=== PATIENT | female | born 1985 | race Caucasian/White ===

== ENCOUNTER 2018-03-26 14:02 | Emergency (ER) | payer OTHER ==
--- NOTE | 2018-03-26 14:15 | ER Report ---
History and Physical Time Seen By MD: 14:14 Hx. of Stated Complaint: sore throat started last night. Now has nausea and dry heaving without anything coming up HPI/ROS CHIEF COMPLAINT: Sore throat, nausea and vomiting HISTORY OF PRESENT ILLNESS: This is a 33-year-old female, , who presents to the emergency department for a sore throat, upper respiratory infection and nausea and vomiting. Patient states that she is 17 weeks , has not sought out care at this time. She states that yesterday she had upper respiratory type of symptoms, nose congestion, sinus pressure, this morning woke up with a sore throat, states she has thrown up twice today, the last time she threw up was about one hour prior to arrival when she felt that she was gagging and felt that she couldn't brief, that resolved when she finished throwing up. She does have some chills, no aches. She's had significant nausea with this . She does state she has not had care at this time however she does have a follow-up appointment with Dr. Cuba in the next 1-2 weeks. No rashes. No vaginal discharge, no bleeding or spotting. The baby continues to move. No chest pain or shortness of breath. No dysuria. REVIEW OF SYSTEMS: Constitutional: As above. Eyes: No discharge. ENT: No sore throat. Cardiovascular: No chest pain, no palpitations. Respiratory: No cough, no shortness of breath. Gastrointestinal: As above. Genitourinary: No hematuria. SUPERVISOR SMOKE CONTROL: As above. Musculoskeletal: No back pain. Skin: No rashes. Neurological: No headache. Allergies: Coded Allergies: acetaminophen (Verified Allergy, Intermediate, "passed out", 03/26/18) propoxyphene (Verified Allergy, Intermediate, "passed out", 03/26/18) sumatriptan (Verified Allergy, Unknown, caused high blood pressure , 03/26/18) Home Meds Active Scripts Ondansetron Hcl (ZOFRAN) 4 Mg Tablet, 4 MG PO Q4-6H PRN for prn, #20 TAB Prov:CEICLMICHAEL FORD SEWER INSPECTOR-BC 03/26/18 Past Medical/Surgical History The patient has a past medical and surgical history of , bipolar, lumpectomy from right breast. Reviewed Nurses Notes: Yes Constitutional Vital Sign - Last 24 Hours 03/26/18 03/26/18 03/26/18 03/26/18 14:08 14:09 14:20 14:32 Temp 99.1 Pulse 126 112 Resp 18 B/P (MAP) 125/67 125/67 (86) 113/68 (83) Pulse Ox 95 94 O2 Delivery Room Air 03/26/18 03/26/18 03/26/18 03/26/18 14:40 15:00 15:02 15:32 Pulse 100 94 B/P (MAP) 111/62 (78) 98/59 (72) Pulse Ox 96 93 03/26/18 15:40 B/P (MAP) 109/52 (71) Physical Exam General Appearance: The patient is alert, has no immediate need for airway protection and no signs of toxicity. Eyes: Pupils equal and round no pallor or injection. ENT, Mouth: Mucous membranes are moist. Mild erythema to the posterior oropharynx, no exudates or tonsillar hypertrophy. Respiratory: There are no retractions, lungs are clear to auscultation. Cardiovascular: Regular rate and rhythm. Gastrointestinal: Abdomen is round, soft and non tender, no masses, bowel sounds normal. SUPERVISOR SMOKE CONTROL: heart tones 150 bpm. . Neurological: Alert and oriented 4. Moving all extremities. Following up as per no focal neuro deficits. Skin: Warm and dry, no rashes. Musculoskeletal: Neck is supple non tender. Extremities are nontender, nonswollen and have full range of motion. DIFFERENTIAL DIAGNOSIS: After history and physical exam differential diagnosis was considered for influenza, viral syndrome, strep throat, urinary tract infection, preeclampsia. Medical Decision Making Data Points Result Diagram: 03/26/18 1433 03/26/18 1433 Laboratory Hematology Test 03/26/18 14:33 03/26/18 14:43 03/26/18 15:19 Red Blood Count 4.85 M/uL (4.17-5.56) Mean Corpuscular Volume 85.0 fL (80.0-96.0) Mean Corpuscular Hemoglobin 29.0 pg (26.0-33.0) Mean Corpuscular Hemoglobin Concent 34.0 g/dL (32.0-36.0) Red Cell Distribution Width 13.7 % (11.5-14.5) Mean Platelet Volume 10.4 fL (7.2-11.1) Neutrophils (%) (Auto) 87.9 % (39.4-72.5) Lymphocytes (%) (Auto) 6.7 % (17.6-49.6) Monocytes (%) (Auto) 4.8 % (4.1-12.4) Eosinophils (%) (Auto) 0.3 % (0.4-6.7) Basophils (%) (Auto) 0.3 % (0.3-1.4) Nucleated RBC Relative Count (auto) 0.2 /100WBC Neutrophils # (Auto) 16.2 K/uL (2.0-7.4) Lymphocytes # (Auto) 1.2 K/uL (1.3-3.6) Monocytes # (Auto) 0.9 K/uL (0.3-1.0) Eosinophils # (Auto) 0.0 K/uL (0.0-0.5) Basophils # (Auto) 0.1 K/uL (0.0-0.1) Nucleated RBC Absolute Count (auto) 0.03 K/uL Sodium Level 133 mmol/L (137-145) Potassium Level 3.5 mmol/L (3.5-5.0) Chloride Level 105 mmol/L (98-107) Carbon Dioxide Level 18 mmol/L (22-31) Blood Urea Nitrogen 5 mg/dl (7-18) Creatinine 0.60 mg/dl (0.52-1.04) Glomerular Filtration Rate Calc > 60.0 Random Glucose 94 mg/dl (75-110) Calcium Level 8.8 mg/dl (8.4-10.2) Total Bilirubin 0.5 mg/dl (0.2-1.3) Aspartate Amino Transf (AST/SGOT) 14 U/L (0-35) Alanine Aminotransferase (ALT/SGPT) 17 U/L (0-56) Alkaline Phosphatase 89 U/L (0-126) Total Protein 6.2 g/dl (6.3-8.2) Albumin 3.3 g/dl (3.5-5.0) Influenza Virus Type A (PCR) Negative (NEGATIVE) Influenza Virus Type B (PCR) Negative (NEGATIVE) Urine Color Yellow Urine Clarity Clear Urine pH 6.0 pH (4.8-9.5) Urine Specific Marissa 1.004 Urine Protein Negative mg/dL (NEGATIVE) Urine Glucose (UA) Negative mg/dL (NEGATIVE) Urine Ketones Negative mg/dL (NEGATIVE) Urine Blood Negative (NEGATIVE) Urine Nitrite Negative (NEGATIVE) Urine Bilirubin Negative (NEGATIVE) Urine Urobilinogen Negative mg/dL (0.2-1.9) Urine Leukocyte Esterase Negative (NEGATIVE) Urine RBC <1 /HPF (0-2/HPF) Urine WBC 1 /HPF (0-5/HPF) Urine Squamous Epithelial Cells Few /LPF (</=FEW) Urine Bacteria Few /HPF (NONE-FEW) Urine Hyaline Casts Few /LPF (NONE-FEW) Urine Mucus None /HPF (NONE-FEW) Chemistry Test 03/26/18 14:33 03/26/18 14:43 03/26/18 15:19 White Blood Count 18.4 k/uL (4.5-11.0) Red Blood Count 4.85 M/uL (4.17-5.56) Hemoglobin 14.0 g/dL (12.0-16.0) Hematocrit 41.3 % (34.0-47.0) Mean Corpuscular Volume 85.0 fL (80.0-96.0) Mean Corpuscular Hemoglobin 29.0 pg (26.0-33.0) Mean Corpuscular Hemoglobin Concent 34.0 g/dL (32.0-36.0) Red Cell Distribution Width 13.7 % (11.5-14.5) Platelet Count 152 K/uL (150-450) Mean Platelet Volume 10.4 fL (7.2-11.1) Neutrophils (%) (Auto) 87.9 % (39.4-72.5) Lymphocytes (%) (Auto) 6.7 % (17.6-49.6) Monocytes (%) (Auto) 4.8 % (4.1-12.4) Eosinophils (%) (Auto) 0.3 % (0.4-6.7) Basophils (%) (Auto) 0.3 % (0.3-1.4) Nucleated RBC Relative Count (auto) 0.2 /100WBC Neutrophils # (Auto) 16.2 K/uL (2.0-7.4) Lymphocytes # (Auto) 1.2 K/uL (1.3-3.6) Monocytes # (Auto) 0.9 K/uL (0.3-1.0) Eosinophils # (Auto) 0.0 K/uL (0.0-0.5) Basophils # (Auto) 0.1 K/uL (0.0-0.1) Nucleated RBC Absolute Count (auto) 0.03 K/uL Glomerular Filtration Rate Calc > 60.0 Calcium Level 8.8 mg/dl (8.4-10.2) Total Bilirubin 0.5 mg/dl (0.2-1.3) Aspartate Amino Transf (AST/SGOT) 14 U/L (0-35) Alanine Aminotransferase (ALT/SGPT) 17 U/L (0-56) Alkaline Phosphatase 89 U/L (0-126) Total Protein 6.2 g/dl (6.3-8.2) Albumin 3.3 g/dl (3.5-5.0) Influenza Virus Type A (PCR) Negative (NEGATIVE) Influenza Virus Type B (PCR) Negative (NEGATIVE) Urine Color Yellow Urine Clarity Clear Urine pH 6.0 pH (4.8-9.5) Urine Specific Marissa 1.004 Urine Protein Negative mg/dL (NEGATIVE) Urine Glucose (UA) Negative mg/dL (NEGATIVE) Urine Ketones Negative mg/dL (NEGATIVE) Urine Blood Negative (NEGATIVE) Urine Nitrite Negative (NEGATIVE) Urine Bilirubin Negative (NEGATIVE) Urine Urobilinogen Negative mg/dL (0.2-1.9) Urine Leukocyte Esterase Negative (NEGATIVE) Urine RBC <1 /HPF (0-2/HPF) Urine WBC 1 /HPF (0-5/HPF) Urine Squamous Epithelial Cells Few /LPF (</=FEW) Urine Bacteria Few /HPF (NONE-FEW) Urine Hyaline Casts Few /LPF (NONE-FEW) Urine Mucus None /HPF (NONE-FEW) Urinalysis Test 03/26/18 15:19 Urine Color Yellow Urine Clarity Clear Urine pH 6.0 pH (4.8-9.5) Urine Specific Marissa 1.004 Urine Protein Negative mg/dL (NEGATIVE) Urine Glucose (UA) Negative mg/dL (NEGATIVE) Urine Ketones Negative mg/dL (NEGATIVE) Urine Blood Negative (NEGATIVE) Urine Nitrite Negative (NEGATIVE) Urine Bilirubin Negative (NEGATIVE) Urine Urobilinogen Negative mg/dL (0.2-1.9) Urine Leukocyte Esterase Negative (NEGATIVE) Urine RBC <1 /HPF (0-2/HPF) Urine WBC 1 /HPF (0-5/HPF) Urine Squamous Epithelial Cells Few /LPF (</=FEW) Urine Bacteria Few /HPF (NONE-FEW) Urine Hyaline Casts Few /LPF (NONE-FEW) Urine Mucus None /HPF (NONE-FEW) ED Course/Re-evaluation Clinical Indication for ER IV: Hydration, IV Access ED Course The patient was admitted to room. A history and physical were obtained. Differential diagnoses were considered. A 1 L normal saline bolus was given. A CBC, CMP were obtained. A UA was collected. 4 mg IV Zofran were given. CBC showing white blood cell count 18.4, with a left shift, sodium 133, CO2 18, negative urine, negative influenza. With the was okay on , the rapid onset of nausea and vomiting as well as the current and the patient continues to smoke I do not feel this is a bacterial infection that requires antibiotics. Patient states feeling significant better after the liter fluid and Zofran. She will establish with her SUPERVISOR SMOKE CONTROL on Wednesday, she has yet to establish care. I also recommended that she stop smoking during the . I do feel this is a viral illness and will likely pass. I did recommend returning to the ER for any other concerns or worsening symptoms. Patient was in agreement with this plan of care and discharged home. The patient was given a prescription for Zofran. Decision to Disposition Date: Mar 26, 2018 Decision to Disposition Time: 16:19 Depart Departure Latest Vital Signs Vital Signs Date Time Temp Pulse Resp B/P (MAP) Pulse Ox O2 Delivery O2 Flow Rate FiO2 03/26/18 15:40 109/52 (71) 03/26/18 15:32 94 93 03/26/18 14:08 99.1 18 Room Air Impression: Primary Impression: Viral syndrome Additional Impression: Condition: Improved Disposition: HOME OR SELF-CARE Referrals: CHRISTINE CUBA MD New Scripts Ondansetron Hcl (ZOFRAN) 4 Mg Tablet 4 MG PO Q4-6H PRN for prn, #20 TAB Prov: MICHAEL HUGHES SEWER INSPECTOR-BC 03/26/18 Patient Instructions: First Trimester (ED), Vitamins (By [facility]), Viral Syndrome (ED) Additional Instructions: Be sure to follow up with Dr. Cuba within 1 week for reevaluation. Get plenty of rest. Drink plenty of water. Take Zofran as needed for Nausea or Vomiting. Please consider smoking cessation during . Please begin your care as soon as possible. Please start vitamins today. Return to the ED for any other concerns or worsening symptoms. Problem Qualifiers Additional Impression: Weeks of gestation: 14 weeks Qualified Codes: Z3A.14 - 14 weeks gestation of MICHAEL HUGHES-TALHA Mar 26, 2018 14:15
[2018-03-26] MEDS ORDERED: NS(*) 0.9% 1000 ML BAG 1,000 ML IV ONE (14:29)
[2018-03-26] MEDS ORDERED: ONDANSETRON 4 MG/2 ML VIAL IVP ONE (14:30)
[2018-03-26 14:45] LABS: PLATELET COUNT, AUTOMATED 152 K/uL (150-450)
[2018-03-26] MEDS ORDERED: ACETAMINOPHEN 325 MG TAB PO ONE (14:55)
[2018-03-26 15:40] VITALS: BP 109/52
[2018-03-26] MEDS ORDERED: ONDA4TAB97 PO (15:44)
== END 2018-03-26 16:23 | disposition home or self-care (01) ==
LOC: ER 14:11
DX: O98.511 Other viral diseases complicating pregnancy, first trimester (principal); B34.9 Viral infection, unspecified; Z3A.14 14 weeks gestation of pregnancy; F17.210 Nicotine dependence, cigarettes, uncomplicated
CPT/HCPCS: 81001; 85025; 87502; 96361; 96374; 99283; J2405; J7030; 82040; 82247; 82310; 82374; 82435; 82565; 82947; 84075; 84132; 84155; 84295; 84450; 84460; 84520

== ENCOUNTER 2018-04-01 17:48 | Emergency (ER) | payer OTHER ==
[~2018-04-01 17:48] MED LIST: ONDA4TAB97 PO
--- NOTE | 2018-04-01 18:03 | ER Report ---
History and Physical Time Seen By MD: 18:02 HPI/ROS CHIEF COMPLAINT: Left ear pain HISTORY OF PRESENT ILLNESS: 33-year-old female presents with left ear pain. She was seen here 6 days ago in the emergency department. She was 17 weeks at that time. She now has severe left ear pain. She was diagnosed with upper respiratory infection. It was felt to be viral. REVIEW OF SYSTEMS: Respiratory: No cough, no dyspnea. Cardiovascular: No chest pain, no palpitations. Gastrointestinal: No vomiting, no abdominal pain. Musculoskeletal: No back pain. Allergies: Coded Allergies: acetaminophen (Verified Allergy, Intermediate, "passed out", 04/01/18) propoxyphene (Verified Allergy, Intermediate, "passed out", 04/01/18) sumatriptan (Verified Allergy, Unknown, caused high blood pressure , 04/01) Home Meds Active Scripts Oxycodone Hcl/Acetaminophen (PERCOCET 5-325 MG TABLET) 1 Each Tablet, 1 EACH PO Q4-6H PRN for PAIN, #10 Prov:BRIT MEJIA DO 04/01/18 Neomycin/Polymyxin B Sulf/Hc (Cortisporin [DSC] EAR SOLN) 10 Ml Solution, 10 DROP OT TID for ear infection, #10 BOT Prov:BRIT MEJIA DO 04/01/18 Cefuroxime Axetil (CEFUROXIME) 500 Mg Tablet, 500 MG PO BID for infection, #14 TAB Prov:BRIT MEJIA DO 04/01/18 Ondansetron Hcl (ZOFRAN) 4 Mg Tablet, 4 MG PO Q4-6H PRN for prn, #20 TAB Prov:MICHAEL HUGHES BRAILLE DUPLICATING MACHINE OPERATOR- 03/26/18 Reviewed Nurses Notes: Yes Old Medical Records Reviewed: Yes Constitutional Vital Sign - Last 24 Hours 04/01/18 04/01/18 04/01/18 04/01/18 17:54 18:00 18:05 18:18 Temp 98.8 Pulse 102 96 Resp 18 B/P (MAP) 103/77 (86) 110/60 (77) 110/60 Pulse Ox 96 96 O2 Delivery Room Air Physical Exam General Appearance: The patient is alert, has no immediate need for airway protection and no current signs of toxicity. Vital signs stable, afebrile, pulse ox normal HEENT: Pupils equal and round no injection. TMs, the right appears normal. The left grossly erythematous and bulging. Ear canals also swollen. Respiratory: Chest is non tender, lungs are clear to auscultation. Cardiac: regular rate and rhythm Gastrointestinal: Abdomen is soft and non tender, no masses, bowel sounds normal. Musculoskeletal: Neck: Neck is supple and non tender. Extremities have full range of motion and are non tender. Skin: No rashes or lesions. DIFFERENTIAL DIAGNOSIS: After history and physical exam differential diagnosis was considered for otitis media otitis externa, sinusitis, pharyngitis, bronchitis, pneumonia Medical Decision Making ED Course/Re-evaluation ED Course Patient was admitted to an examination room. H&P was done. The differential diagnoses was considered. On conical examination. Patient has gross otitis media of the left tympanic membrane. She'll be covered with Ceftin. She'll be given oxycodone for pain relief. She'll be given Cortisporin eardrops. Patient advised to take Mucinex. Patient advised to follow-up with ARTIFICIAL SNOW MAKING MACHINE OPERATOR if unimproved in a few days. Decision to Disposition Date: Apr 01, 2018 Decision to Disposition Time: 18:11 Depart Departure Latest Vital Signs Vital Signs Date Time Temp Pulse Resp B/P (MAP) Pulse Ox O2 Delivery O2 Flow Rate FiO2 04/01/18 18:18 96 96 04/01/18 18:05 98.8 18 110/60 Room Air Impression: Primary Impression: Left otitis media Additional Impressions: Upper respiratory infection 18 weeks gestation of Condition: Improved Disposition: HOME OR SELF-CARE New Scripts Oxycodone Hcl/Acetaminophen (PERCOCET 5-325 MG TABLET) 1 Each Tablet 1 EACH PO Q4-6H PRN for PAIN, #10 Prov: BRIT MEJIA DO 04/01/18 Neomycin/Polymyxin B Sulf/Hc (Cortisporin [DSC] EAR SOLN) 10 Ml Solution 10 DROP OT TID for ear infection, #10 BOT Prov: BRIT MEJIA DO 04/01/18 Cefuroxime Axetil (CEFUROXIME) 500 Mg Tablet 500 MG PO BID for infection, #14 TAB Prov: BRIT MEJIA DO 04/01/18 Patient Instructions: Otitis Media (ED) Additional Instructions: Take Mucinex Follow-up with primary care if unimproved in 3-5 days Follow-up with Dr. Cuba as planned on Wednesday Problem Qualifiers Primary Impression: Left otitis media Otitis media type: suppurative Chronicity: acute Recurrence: not specified as recurrent Spontaneous tympanic membrane rupture: without spontaneous rupture Qualified Codes: H66.002 - Acute suppurative otitis media without spontaneous rupture of ear drum, left ear Additional Impressions: Upper respiratory infection URI type: unspecified URI Qualified Codes: J06.9 - Acute upper respiratory infection, unspecified BRIT MEJIA DO Apr 01, 2018 18:03
[2018-04-01 18:05] VITALS: BP 110/60
[2018-04-01] MEDS ORDERED: CORED OT (18:14)
[2018-04-01] MEDS ORDERED: CEFU500T10 PO (18:14)
[2018-04-01] MEDS ORDERED: OXYC-865 PO (18:14)
== END 2018-04-01 18:24 | disposition home or self-care (01) ==
LOC: ER 18:03
DX: O26.892 Other specified pregnancy related conditions, second trimester (principal); Z3A.18 18 weeks gestation of pregnancy; H66.002 Acute suppurative otitis media without spontaneous rupture of ear drum, left ear; J06.9 Acute upper respiratory infection, unspecified
CPT/HCPCS: 99283

== ENCOUNTER 2018-05-06 17:24 | Outpatient (CLI) | payer OTHER ==
[~2018-05-06] VITALS: Ht 162.6 cm; Wt 96.2 kg
[~2018-05-06 17:24] MED LIST changes: +CEFU500T10 PO; +CORED OT; +OXYC-865 PO
[2018-05-06 18:20] VITALS: BP 127/71
[2018-05-06] MEDS ORDERED: IBUPROFEN 800 MG TAB PO ONE (18:20)
[2018-05-06 18:25] VITALS: Ht 162.6 cm; Wt 96.2 kg
[2018-05-06] MEDS ORDERED: APAP/HYDROCODONE 325/5 TAB PO ONE (19:15)
== END 2018-05-06 19:35 | disposition home or self-care (01) ==
LOC: UNDOADMOB 17:24 → OB 17:24 → L&D 17:24 → INTOOBSV 17:24 → OB 17:24 → UNDODISOB 19:35 → L&D 19:35 → EDSTATUS 05-30 16:22
PROVIDERS: ATTEND Student in an Organized Health Care Education/Training Program
DX: O26.892 Other specified pregnancy related conditions, second trimester (principal); Z3A.23 23 weeks gestation of pregnancy
CPT/HCPCS: 36415; 82040; 82247; 82310; 82374; 82435; 82565; 82947; 84075; 84132; 84155; 84295; 84450; 84460; 84520; 99213; G0378; G0379

== ENCOUNTER 2018-07-11 10:36 | Outpatient (CLI) | payer OTHER ==
[~2018-07-11] VITALS: Ht 162.6 cm; Wt 97.5 kg
[2018-07-11 10:49] VITALS: BP 127/58; Ht 162.6 cm; Wt 97.5 kg
[2018-07-11] MEDS ORDERED: ONDANSETRON 4 MG ODT TABDP SL ONE (11:40)
[2018-07-11] MEDS ORDERED: PREN-148 (13:22)
[2018-07-11] MEDS ORDERED: ALBU8.5H IH (13:22)
== END 2018-07-11 13:29 | disposition home or self-care (01) ==
LOC: L&D 10:36 → OB 10:36 → UNDOADMIN 10:36 → L&D 13:29 → UNDODISIN 13:29 → EDSTATUS 07-13 12:07
PROVIDERS: ATTEND Student in an Organized Health Care Education/Training Program
DX: O26.893 Other specified pregnancy related conditions, third trimester (principal); R11.0 Nausea; R42 Dizziness and giddiness; Z3A.32 32 weeks gestation of pregnancy
CPT/HCPCS: 59025; 81001; 87077; 87088; 87186; 99213; S0119

== ENCOUNTER 2018-09-08 17:03 | Emergency (ER) | payer OTHER ==
[2018-07-11 10:49] VITALS: Wt 92.1 kg
[~2018-09-08 17:03] MED LIST changes: +ALBU8.5H IH; +PREN-148
--- NOTE | 2018-09-08 17:09 | ER Report ---
History and Physical Time Seen By MD: 17:06 HPI/ROS CHIEF COMPLAINT: Chest pain HISTORY OF PRESENT ILLNESS: This is a 33-year-old female who presents to emergency department for chest pain. Patient is status post vaginal delivery 10 days. No complications during the delivery. She did smoke before during and currently smoking as well. She states that today around 2:00 she had a sudden onset of midsternal anterior chest pain, it did radiate into the left arm. She sat down, the pain subsided, she got up went home and the pain returned while she was just sitting at home, midsternal into the jaw and left arm, the pain is now subsiding. She denies any recent fevers or chills. No nausea or vomiting. No diaphoresis. Heart rate was 95 upon arrival. She is not currently short of breath however during these episodes she states she does have some shortness of breath. REVIEW OF SYSTEMS: Constitutional: No fever, no chills. Eyes: No discharge. ENT: No sore throat. Cardiovascular: As above. Respiratory: As above. Gastrointestinal: No abdominal pain, no vomiting. Genitourinary: No hematuria. Musculoskeletal: No back pain. Skin: No rashes. Neurological: No headache. Allergies: Coded Allergies: acetaminophen (Verified Allergy, Intermediate, "passed out", 09/08/18) propoxyphene (Verified Allergy, Intermediate, "passed out", 09/08/18) sumatriptan (Verified Allergy, Unknown, caused high blood pressure , 09/08/18) Home Meds Discontinued Reported Medications Albuterol Sulfate 90 Mcg/Act (PROAIR HFA 90 MCG/ACT) 8.5 Gm Hfa.aer.ad, 1-2 PUFF IH 3-4XD PRN for SHORTNESS OF BREATH, INHALER 07/11/18 Vit W-Ca,Fe,FA(<1 mg) ( Formula) 1 Each Tablet 07/11/18 Discontinued Scripts Ondansetron Hcl (ZOFRAN) 4 Mg Tablet, 4 MG PO Q4-6H PRN for prn, #20 TAB Prov:MICHAEL HUGHES MUNICIPAL SERVICES MANAGER-BC 03/26/18 Past Medical/Surgical History Patient has a past medical and surgical history of , bipolar, manic depressive, smokes cigarettes, right breast lumpectomy. Reviewed Nurses Notes: Yes Hx Smoking: Yes Smoking Status: Current: Every Day Smoker Exposure to Second Hand Smoke?: Yes Constitutional Vital Sign - Last 24 Hours 09/08/18 09/08/18 09/08/18 09/08/18 17:07 17:10 17:30 17:40 Temp 98.3 Pulse 92 90 87 Resp 20 12 9 B/P (MAP) 122/68 116/78 (91) Pulse Ox 94 96 90 09/08/18 18:00 B/P (MAP) 118/77 (91) Physical Exam General Appearance: The patient is alert, has no immediate need for airway protection and no signs of toxicity. Eyes: Pupils equal and round no pallor or injection. ENT, Mouth: Mucous membranes are moist. Respiratory: There are no retractions, lungs are clear to auscultation. Cardiovascular: Regular rate and rhythm. No murmurs, clicks or rubs. Gastrointestinal: Abdomen is soft and non tender, no masses, bowel sounds normal. Neurological: Alert and oriented 4. Moving all extremities. Following all commands. No focal neuro deficits. Skin: Warm and dry, no rashes. Musculoskeletal: Neck is supple non tender. Extremities are nontender, nonswollen and have full range of motion. DIFFERENTIAL DIAGNOSIS: After history and physical exam differential diagnosis was considered for chest pain including but not limited to myocardial ischemia, pericarditis pulmonary embolus, chest wall pain, pleural inflammation and pulmonary infectious causes. Medical Decision Making Data Points Result Diagram: 09/08/18 1712 09/08/18 1712 Laboratory Hematology Test 09/08/18 17:12 Red Blood Count 5.48 M/uL (4.17-5.56) Mean Corpuscular Volume 81.7 fL (80.0-96.0) Mean Corpuscular Hemoglobin 27.2 pg (26.0-33.0) Mean Corpuscular Hemoglobin Concent 33.3 g/dL (32.0-36.0) Red Cell Distribution Width 16.1 % (11.5-14.5) Mean Platelet Volume 8.6 fL (7.2-11.1) Neutrophils (%) (Auto) 66.2 % (39.4-72.5) Lymphocytes (%) (Auto) 26.2 % (17.6-49.6) Monocytes (%) (Auto) 5.9 % (4.1-12.4) Eosinophils (%) (Auto) 1.2 % (0.4-6.7) Basophils (%) (Auto) 0.5 % (0.3-1.4) Nucleated RBC Relative Count (auto) 0.0 /100WBC Neutrophils # (Auto) 7.2 K/uL (2.0-7.4) Lymphocytes # (Auto) 2.9 K/uL (1.3-3.6) Monocytes # (Auto) 0.6 K/uL (0.3-1.0) Eosinophils # (Auto) 0.1 K/uL (0.0-0.5) Basophils # (Auto) 0.1 K/uL (0.0-0.1) Nucleated RBC Absolute Count (auto) 0.00 K/uL D-Dimer Quantitative (PE/DVT) 0.76 ug/ml (0-0.50) Sodium Level 138 mmol/L (137-145) Potassium Level 4.0 mmol/L (3.5-5.0) Chloride Level 106 mmol/L (98-107) Carbon Dioxide Level 21 mmol/L (22-31) Blood Urea Nitrogen 17 mg/dl (7-18) Creatinine 1.10 mg/dl (0.52-1.04) Glomerular Filtration Rate Calc 57.6 Random Glucose 105 mg/dl (75-110) Calcium Level 9.3 mg/dl (8.4-10.2) Total Bilirubin 0.4 mg/dl (0.2-1.3) Aspartate Amino Transf (AST/SGOT) 22 U/L (0-35) Alanine Aminotransferase (ALT/SGPT) 35 U/L (0-56) Alkaline Phosphatase 133 U/L (0-126) Troponin I < 0.012 ng/ml Total Protein 7.0 g/dl (6.3-8.2) Albumin 3.8 g/dl (3.5-5.0) Chemistry Test 09/08/18 17:12 White Blood Count 10.9 k/uL (4.5-11.0) Red Blood Count 5.48 M/uL (4.17-5.56) Hemoglobin 14.9 g/dL (12.0-16.0) Hematocrit 44.8 % (34.0-47.0) Mean Corpuscular Volume 81.7 fL (80.0-96.0) Mean Corpuscular Hemoglobin 27.2 pg (26.0-33.0) Mean Corpuscular Hemoglobin Concent 33.3 g/dL (32.0-36.0) Red Cell Distribution Width 16.1 % (11.5-14.5) Platelet Count 321 K/uL (150-450) Mean Platelet Volume 8.6 fL (7.2-11.1) Neutrophils (%) (Auto) 66.2 % (39.4-72.5) Lymphocytes (%) (Auto) 26.2 % (17.6-49.6) Monocytes (%) (Auto) 5.9 % (4.1-12.4) Eosinophils (%) (Auto) 1.2 % (0.4-6.7) Basophils (%) (Auto) 0.5 % (0.3-1.4) Nucleated RBC Relative Count (auto) 0.0 /100WBC Neutrophils # (Auto) 7.2 K/uL (2.0-7.4) Lymphocytes # (Auto) 2.9 K/uL (1.3-3.6) Monocytes # (Auto) 0.6 K/uL (0.3-1.0) Eosinophils # (Auto) 0.1 K/uL (0.0-0.5) Basophils # (Auto) 0.1 K/uL (0.0-0.1) Nucleated RBC Absolute Count (auto) 0.00 K/uL D-Dimer Quantitative (PE/DVT) 0.76 ug/ml (0-0.50) Glomerular Filtration Rate Calc 57.6 Calcium Level 9.3 mg/dl (8.4-10.2) Total Bilirubin 0.4 mg/dl (0.2-1.3) Aspartate Amino Transf (AST/SGOT) 22 U/L (0-35) Alanine Aminotransferase (ALT/SGPT) 35 U/L (0-56) Alkaline Phosphatase 133 U/L (0-126) Troponin I < 0.012 ng/ml Total Protein 7.0 g/dl (6.3-8.2) Albumin 3.8 g/dl (3.5-5.0) Coagulation Test 09/08/18 17:12 D-Dimer Quantitative (PE/DVT) 0.76 ug/ml EKG/Imaging EKG Interpretation 12 lead EKG: Time of EKG 1711. Rhythm: Normal sinus rhythm, ventricular rate 91 bpm. [place]: normal QRS: normal ST segments: No ST depression or elevation identified. Imaging PATIENT NAME: Rolanda Ackerman : 1985 MR: [id number] V: [id number] EXAM DATE: ORDERING PHYSICIAN: MICHAEL HUGHES TECHNOLOGIST: Location: [facility] Patient: Rolanda Ackerman : 1985 Visit/Account:[id number] Date of Sevice: 09/08/2018 CT CTA CHEST W & W/O CON HISTORY: eval for PE, chest pain, elevated dimer TECHNIQUE: CTA chest with intravenous contrast attention to pulmonary arteries. Sagittal, coronal and slab 3D MIP coronal reconstructed images were also created for further evaluation and interpretation. One of the following dose optimization techniques was utilized in the performance of this exam: Automated exposure control; adjustment of the mA and/or kV according to the patient's size; or use of an iterative reconstruction technique. Specific details can be referenced in the facility's radiology CT exam operational policy. CONTRAST: Isovue-370 75 mL COMPARISON: Chest 09/08/2018 FINDINGS: Lungs:: Central airways are patent. Negative pulmonary parenchymal abnormalities. Heart, krissy and aorta:: Heart is not enlarged. Great vessels follow normal course and caliber. Pulmonary arteries:Opacification of pulmonary arteries is excellent. There are no filling defects identified within the pulmonary arteries. Pleura:: Negative. Chest wall: Negative axillary adenopathy. Visualized upper abdomen: Negative. Bones: Negative. IMPRESSION: No centrally obstructive pulmonary emboli Report Dictated By: Paramjit Hamilton MD at 09/08/2018 6:26 PM Report E-Signed By: Paramjit Hamilton MD at 09/08/2018 6:29 PM WSN:[id number] ED Course/Re-evaluation Clinical Indication for ER IV: Hydration, IV Access ED Course The patient was admitted to room. A history of physical were obtained. Differential diagnoses were considered. An IV was started. A CBC, CMP, troponin and d-dimer were obtained. Laboratory studies unremarkable, negative troponin, elevated d-dimer. I did review the elevated d-dimer with the patient and her , we did elect to proceed with a CT of the chest to evaluate for pulmonary embolus, the CTA was negative. Patient was given a GI cocktail with some relief, she was also given 40 mg IV Protonix. I do believe that she has a pro reflux, we discussed this, I did tell her that I wanted her to follow up with her primary care provider or established with a new primary care provider within one week for reevaluation. Patient expressed understanding was discharged home. 09/08/2018 5:29:53 pm I did explain to patient that she is at higher risk for a pulmonary embolus as she recently delivered and also smokes. If a CT is ne cessary, she is agreeable to a CT scan. I have recently talked with radiology about a CT scan with contrast, the radiologist did state that the amount of contrast and would reach the is negligible however the patient does have some reserves already stored and the baby is also able to take formula. 09/08/2018 6:31:56 pm patient states she is having recurrent pain now, I did apply some pressure to the anterior chest, she states that this did help with some of the discomfort. Will try a GI cocktail. 09/08/2018 6:59:26 pm The patient did have some improvement of symptoms, will try Protonix, her symptoms are less likely related to ACS and more likely related to acid reflux. 09/08/2018 7:12:59 pm patient's states having significant improvement at the time of discharge. Decision to Disposition Date: Sep 08, 2018 Decision to Disposition Time: 19:08 Depart Departure Latest Vital Signs Vital Signs Date Time Temp Pulse Resp B/P (MAP) Pulse Ox O2 Delivery O2 Flow Rate FiO2 09/08/18 18:00 118/77 (91) 09/08/18 17:40 87 9 90 09/08/18 17:07 98.3 Impression: Primary Impression: Chest pain of uncertain etiology Condition: Improved Disposition: HOME OR SELF-CARE Referrals: CHRISTINE ALSTON MD (PCP) 1 Week Patient Instructions: Chest Pain (ED), Gastroesophageal Reflux Disease (ED) Additional Instructions: No concerning findings on the laboratory studies, EKG looked good, chest x-ray was not concerning, this CT of your chest did not show a pulmonary embolus. Your symptoms could be related to acid reflux, I would like to follow-up with Dr. Alston or establish with a new primary care provider for reevaluation within 1 week. Heat a bland diet for the next 24-48 hours. Avoid spicy, hot and greasy foods. Eat a well balanced meal. Drink plenty of water. Get plenty of rest. Return to the ED for any other concerns or worsening symptoms. You can also try OTC protonix, famotidine or Zantac once a day for the next week. MICHAEL UHGHES MUNICIPAL SERVICES MANAGER-BC Sep 08, 2018 17:09
[2018-09-08] MEDS ORDERED: NS(*) 0.9% 1000 ML BAG 1,000 ML IV ONE (17:27)
[2018-09-08 17:35] LABS: PLATELET COUNT, AUTOMATED 321 K/uL (150-450)
[2018-09-08] MEDS ORDERED: IOPAMIDOL 76% 100 ML INFUS BTL 100 ML ONE (18:00)
[2018-09-08] MEDS ORDERED: NS(*) 0.9% 50 ML BAG 50 ML ONE (18:00)
--- NOTE | 2018-09-08 18:16 | RADIOLOGY IMAGING REPORT ---
FACILITY: [facility] - [place] PATIENT NAME: Rolanda Ackerman : 1985 MR: [id number] V: [id number] EXAM DATE: ORDERING PHYSICIAN: MICHAEL HUGHES TECHNOLOGIST: Location: [facility] Patient: Rolanda Ackerman : 1985 Visit/Account:[id number] Date of Sevice: 09/08/2018 HISTORY: Chest pain and left arm pain DATE: 09/08/2018 5:27 PM TECHNIQUE: CHEST PA LAT COMPARISON: none FINDINGS: The cardiomediastinal silhouette is of normal size and contour. No pleural effusion. No pne umothorax. No consolidation. The lungs are adequately expanded. IMPRESSION: No acute findings Report Dictated By: Ajay Johnson MD at 09/08/2018 6:09 PM Report E-Signed By: Ajay Johnson MD at 09/08/2018 6:10 PM WSN:[id number]
--- NOTE | 2018-09-08 18:32 | EKG ---
[place] [facility] [place] NAME[place] HEATHER PLASCENCIA : [id number] MR: [id number] V: [id number] EXAM DATE: ORDERING PHYSICIAN: MICHAEL HUGHES TECHNOLOGIST: JUSTIN Test Reason : CP Blood Pressure : / mmHG Vent. Rate : 091 BPM Atrial Rate : 091 BPM P-R Int : 134 ms QRS Dur : 088 ms QT Int : 366 ms P-R-T Axes : 019 038 037 degrees QTc Int : 450 ms Sinus rhythm Nonspecific ST findings inferolateral leads No previous ECGs available Confirmed by MARIE NG ([id number] on 09/08/2018 8:11:32 PM Referred By: Confirmed By:MARIE NG
[2018-09-08] MEDS ORDERED: MAG HYD/AL HYD/SIMETH 30ML UDC PO ONE (18:35)
[2018-09-08] MEDS ORDERED: LIDOCAINE 2% VISC SLN 15ML UDC PO ONE (18:35)
--- NOTE | 2018-09-08 18:36 | RADIOLOGY IMAGING REPORT ---
FACILITY: [facility] - [place] PATIENT NAME: Rolanda Ackerman : 1985 MR: [id number] V: [id number] EXAM DATE: ORDERING PHYSICIAN: MICHAEL HUGHES TECHNOLOGIST: Location: [facility] Patient: Rolanda Ackerman : 1985 Visit/Account:[id number] Date of Sevice: 09/08/2018 CT CTA CHEST W & W/O CON HISTORY: eval for PE, chest pain, elevated dimer TECHNIQUE: CTA chest with intravenous contrast attention to pulmonary arteries. Sagittal, coronal a nd slab 3D MIP coronal reconstructed images were also created for further evaluation and interpretati on. One of the following dose optimization techniques was utilized in the performance of this exam: Autom ated exposure control; adjustment of the mA and/or kV according to the patient's size; or use of an i terative reconstruction technique. Specific details can be referenced in the facility's radiology CT exam operational policy. CONTRAST: Isovue-370 75 mL COMPARISON: Chest 09/08/2018 FINDINGS: Lungs:: Central airways are patent. Negative pulmonary parenchymal abnormalities. Heart, krissy and aorta:: Heart is not enlarged. Great vessels follow normal course and caliber. Pulmonary arteries:Opacification of pulmonary arteries is excellent. There are no filling defects bessie ntified within the pulmonary arteries. Pleura:: Negative. Chest wall: Negative axillary adenopathy. Visualized upper abdomen: Negative. Bones: Negative. IMPRESSION: No centrally obstructive pulmonary emboli Report Dictated By: Paramjit Hamilton MD at 09/08/2018 6:26 PM Report E-Signed By: Paramjit Hamilton MD at 09/08/2018 6:29 PM WSN:[id number]
[2018-09-08] MEDS ORDERED: PANTOPRAZOLE SOD 40 MG IV VIAL IVP ONE (18:55)
[2018-09-08 19:00] VITALS: BP 92/59
== END 2018-09-08 19:17 | disposition home or self-care (01) ==
LOC: ER 17:42
DX: R07.9 Chest pain, unspecified (principal)
CPT/HCPCS: 71046; 71275; 84484; 85025; 85379; 93005; 96361; 96374; 99284; C9113; J7030; J7050; Q9967; 82040; 82247; 82310; 82374; 82435; 82565; 82947; 84075; 84132; 84155; 84295; 84450; 84460; 84520

== ENCOUNTER 2018-10-01 19:53 | Emergency (ER) | payer OTHER ==
[2018-07-11 10:49] VITALS: Wt 86.2 kg
[2018-10-01 19:57] VITALS: BP 119/73
--- NOTE | 2018-10-01 20:01 | ER Report ---
History and Physical Time Seen By MD: 19:58 Hx. of Stated Complaint: ACCIDENTALLY KICKED A NIGHT STAND AT 10AM THIS MORNING HPI/ROS CHIEF COMPLAINT: Left foot pain HISTORY OF PRESENT ILLNESS: 33-year-old female patient presents to emergency room with complaint of left foot pain. Patient states that she was walking this morning and axial kicked the nightstand. She states that she did note a deformity of the left fifth toe. She states that she's been taking Tylenol and ibuprofen since then. She states that has become very very bruised. Patient states she has pain with ambulation. She denies any numbness or tingling to the toe. Patient came in because she believes that toe is fractured and believes that he may need to be reset. Allergies: Coded Allergies: acetaminophen (Verified Allergy, Intermediate, "passed out", 10/01/18) propoxyphene (Verified Allergy, Intermediate, "passed out", 10/01/18) sumatriptan (Verified Allergy, Unknown, caused high blood pressure , 10/01/18) Home Meds No Active Prescriptions or Reported Meds Past Medical/Surgical History Patient has a past medical history of lump on breast, manic depression post delivery. Patient has surgical history of lumpectomy in 2004. Reviewed Nurses Notes: Yes Hx Smoking: Yes Smoking Status: Current: Every Day Smoker Exposure to Second Hand Smoke?: Yes Constitutional Vital Sign - Last 24 Hours 10/01/18 19:57 Temp 98.1 Pulse 82 Resp 12 B/P (MAP) 119/73 Pulse Ox 93 O2 Delivery Room Air Physical Exam General appearance: Alert no distress. Respiratory: Chest is non tender, lungs are clear to auscultation. Cardiac: Regular rate and rhythm. Musculoskeletal: Patient does have bruising to the left fifth toe, there is tenderness at the MTP joint, bruising on the proximal flange. There is no obvious deformity noted. DIFFERENTIAL DIAGNOSIS: After history and physical exam differential diagnosis was considered for fracture, contusion, sprain. Medical Decision Making EKG/Imaging Imaging FOOT 3 VIEW LEFT Indication: Pain in fourth and fifth toes after kicking nightstand. Comparison: None Available Findings: 3 views of the left foot were obtained. No fracture or dislocation. No bony lesions, periosteal abnormality or degenerative change. Calcaneal spur. Soft tissues unremarkable. IMPRESSION: 1.No acute osseous abnormality of the left foot Report Dictated By: Paramjit Fisher at 10/01/2018 8:33 PM Report E-Signed By: Paramjit Fisher at 10/01/2018 8:35 PM ED Course/Re-evaluation ED Course Patient was admitted on exam room, history and physical were obtained. Differential diagnoses were considered. On examination patient does have bruising and swelling to the left fifth toe. Heart was regular, lungs are clear. X-rays done of the left foot which showed no acute fractures. I discussed the findings with the patient. We will go ahead and discharge her home at this time. She is to follow-up with her primary care provider in the next week. She is to take Tylenol or ibuprofen as if her pain. She is return to emergency room if condition worsens. Patient verbalized understanding and agreement with plan. Decision to Disposition Date: Oct 01, 2018 Decision to Disposition Time: 20:43 Depart Departure Latest Vital Signs Vital Signs Date Time Temp Pulse Resp B/P (MAP) Pulse Ox O2 Delivery O2 Flow Rate FiO2 10/01/18 19:57 98.1 82 12 119/73 93 Room Air Impression: Primary Impression: Toe contusion Condition: Improved Disposition: HOME OR SELF-CARE Referrals: CHRISTINE ALSTON MD (PCP) New Scripts No Active Prescriptions or Reported Meds Patient Instructions: Contusion in Adults (ED) Additional Instructions: Ice the to 2-3 times a day for 10-15 minutes. Get plenty of rest. Take Tylenol or Ibuprofen as needed for pain. Follow up with your primary care provider in the next week. Return to the ER if condition worsens. Problem Qualifiers Primary Impression: Toe contusion Encounter type: initial encounter Toe: lesser toe Damage to nail status: without damage Laterality: left Qualified Codes: S90.122A - Contusion of left lesser toe(s) without damage to nail, initial encounter AWA MUNGUIA Oct 01, 2018 20:01
--- NOTE | 2018-10-01 20:41 | RADIOLOGY IMAGING REPORT ---
FACILITY: [facility] PATIENT NAME: Rolanda Ackerman : 1985 MR: [id number] V: [id number] EXAM DATE: ORDERING PHYSICIAN: AWA MUNGUIA TECHNOLOGIST: Location: [facility] Patient: Rolanda Ackerman : 1985 Visit/Account:[id number] Date of Sevice: 10/01/2018 FOOT 3 VIEW LEFT Indication: Pain in fourth and fifth toes after kicking nightstand. Comparison: None Available Findings: 3 views of the left foot were obtained. No fracture or dislocation. No bony lesions, periosteal abnormality or degenerative change. Calcaneal spur. Soft tissues unremarkable. IMPRESSION: 1.No acute osseous abnormality of the left foot Report Dictated By: Paramjit Fisher at 10/01/2018 8:33 PM Report E-Signed By: Paramjit Fisher at 10/01/2018 8:35 PM WSN:[id number]
== END 2018-10-01 20:52 | disposition home or self-care (01) ==
LOC: ER 20:04
DX: S90.122A Contusion of left lesser toe(s) without damage to nail, initial encounter (principal)
CPT/HCPCS: 99283